=== PATIENT | male | born 1990 | race Caucasian/White ===

== ENCOUNTER 2018-04-06 16:37 | Inpatient (IN) | payer MEDICAID, OTHER ==
[~2018-04-06] VITALS: Ht 175.3 cm; Wt 59.9 kg
[2018-04-06] MEDS ORDERED: LORazepam 1 MG tablet PO ONE (18:45)
[2018-04-06 19:39] VITALS: BP 146/99
--- NOTE | 2018-04-06 20:23 | NUR ---
Pt has no hx of meds, spoke with Dr Fields and verbal orders were given for Ativan 1 mg po x 1 now, and Risperdal 0.5 mg po bid.
[2018-04-06] MEDS: risperiDONE 0.5mg tablet PO SCH (21:30)
[2018-04-07] MEDS ORDERED: OLANZapine 2.5MG tablet PO ONE ×2 (00:45→01:55)
--- NOTE | 2018-04-07 02:59 | NUR ---
ADMISSION NOTE Patient arrived on the unit on 04/06/2018 at 18:20 via wheelchair from [facility]. He was placed on a 5150 for Grave Disability. He is in sweatpants and a dirty T-shirt with messy hair. Per reports of [facility] that he presented to their ER with his girlfriend who was the historian because Dimitri was unable to answer any questions. She reported that she picked him [facility] (he had been living in [place] for a few months prior). She reported he had lost approximately 30 lbs over about 3 months while in [place]. She also reported he has been having auditory and visual hallucinations such as talking to people in the room that were not there. She said this had been going on since she picked him up at the airport but his conditioned worsened the nights of 03/31 and 04/01. He was unable to feed himself and would experience tremendous shaking while trying to ambulate. He had told her he did LSD and mushrooms while in [place] and she also thinks he took peyote while doing a sweat lodge. This evening on admission he presents to the unit looking bewildered, wide-eyed, and unsteady whenever he tries to stand. He is slightly stiff in his movements. His speech is garbled most of the time but answers some questions appropriately. He appears to comprehend what staff members are saying to him, if you ask him to lift his foot, he does. He is experiencing gross motor disturbance, reaching for objects and slightly missing them or knocking them over. When trying to ask any medical history, or family members we can try to contact, he answers, but his answers are not comprehendible. Patient was given 0.5 mg Risperdal and 1mg Ativan per physician's order. He was able to take these medications but staff had to assist him in drinking water. Laundry Technician could not complete the admission assessments due to his current state. He does not have the current ability to hold a pen to sign anything, and magnetic tape typewriter operator is unsure if he truly understands where he is or why despite explaining things to him.
--- NOTE | 2018-04-07 04:02 | NUR ---
Nursing Progress Note: Legal hold: 5150, expires 04/09/18 at 18:20 Client on voluntary/involuntary status for GD/DTS/DTO: GD Report received from nurse with use of SBAR: just admitted this shift Why are they here: Per reports of [facility] that he presented to their ER with his girlfriend who was the historian because Dimitri was unable to answer any questions. She reported that she picked him up from the [facility] weeks ago (he had been living in [place] for a few months prior). She reported he had lost approximately 30 lbs over about 3 months while in [place]. She also reported he has been having auditory and visual hallucinations such as talking to people in the room that were not there. She said this had been going on since she picked him up at the airport but his conditioned worsened the nights of 03/31 and 04/01. He was unable to feed himself and would experience tremendous shaking while trying to ambulate. He had told her he did LSD and mushrooms while in [place] and she also thinks he took peyote while doing a sweat lodge. Assessment What has happened this shift: Patient was cooperative with physical assessment, and smiled occasionally at staff but is not able to effectively make his needs or thoughts known.When he first came to the unit he was stiff and unable to stand on his own and was a 2 person assist. He was given 1mg Ativan and 0.5 mg Risperdal PO, which he took. Staff showered pt and washed his hair, and dressed him in clean hospital scrubs. He is able to alert staff that he needs to use the bathroom, life underwriter can somewhat make out words he says occasionally, "bathroom" is one of them. He needs to be frequently checked on because he does not use the call rios despite life underwriter showing him where it was and educating him on how to use it multiple times. He just sits up and tries to stand. He rests in bed on his back staring up at the ceiling and he reaches in the air for things that are not there, he is also talking to himself. His eyes are very big as if he may be frightened. Kettle Fry Cook Operator asks if he is okay and he says some incoherent things but the phrase "monster in the room" is recognizable. He then reaches out to writers hand and holds it, seemingly for comfort, and he smiles. Physician was called and Zyprexa 5mg with a 1 time may repeat 5mg dose was ordered. Kettle Fry Cook Operator administered the first 5mg and patient's state did not change so the second dose was given. Patient asked to go to the bathroom at 0330, and he was able to walk almost by himself to the bathroom with minimal assist from staff but he is still unsteady on his feet. He appears very tires, eyes are heavy, but never fully close. Each medication was explained to him before administering. Patient is having gross motor disturbance and misses objects he is trying to grab and cannot hold his water pitcher without spilling it. He was however able to hold a peanut butter and jelly sandwich and eat 75% of it. S/I, H/I: pt is unable to give a comprehendible response A/VH: + A +V hallucinations. Patient is reaching for objects that are not there and talking to people? that are not there Sleep: Patient rests in bed and almost closes his eyes, is very tired but does not appear to fully be asleep. ADL's: Total assist, is beginning to be able to walk with minimal assist but is still a fall risk. Group attendance: safety physician, no groups Were meds taken: yes Any med S/E: unable to assess at this time Mental Status Exam Appearance:clean, staff showered pt and washed his hair, in clean hospital scrubs Eye contact: direct Behavior: bizarre, rests in bed and stares at ceiling, reaches for things that are not there Speech: garbled, expressive aphasia Mood: appears frightened at times but remains polite ans smiles occasionally Affect: blank Thought process: disorganized Thought Content: actively hallucinating, says random things, most of which are not recognizable Cognition: severely impaired Insight: unable to assess Judgment: unable to assess Interventions PRN's used:" now" orders given 1 mg Ativan, 0.5 mg Risperdal, 10 mg Zyprexa. Therapeutic interventions: assistance with ADLS, showered patient, medication education, monitored medication effects, reassure patient of safety, Q15 minute safety checks. Restraints/seclusion/emergency medication: none Justification of Continued Inpatient Treatment: Patient is unable to complete ADLs on his own, he can not even hold a cup of water properly to drink it. He is actively hallucinating and reaching for things that are not there. He is unable to make coherent sentences. He is currently homeless and has no ability or means to provide food or mcfp for himself.
[2018-04-07] MEDS ORDERED: mag hydrox/Alum hydrox/simeth 30ml oral suspension PO PRN (04:28)
[2018-04-07] MEDS ORDERED: acetaminophen 325mg tablet PO PRN (04:28)
[2018-04-07] MEDS ORDERED: magnesium hydroxide 30ml (MOM) UD suspension PO PRN (04:29)
--- NOTE | 2018-04-07 05:22 | NUR ---
During inventory of pts belongings we found a bottle of neurontin as well as a prescription for Lyrica and generic discharge instructions [facility] in [place] dated 03/23/18 with stated dx of acute pain, and fibromyalgia.
[2018-04-07 07:44] VITALS: BP 136/84
[2018-04-07 07:44] LABS: ALBUMIN 3.8 G/DL (3.4-5.0); ANION GAP 12 (8-16); BLOOD UREA NITROGEN 19 MG/DL (7-18); BUN/CREATININE RATIO 27.1 (5.4-32.0); CALCIUM 9.6 MG/DL (8.5-10.1); CHLORIDE 97 MMOL/L (99-107); CHOL/HDL RATIO 2.6 (0.00-4.99); CHOLESTEROL 131 MG/DL (0-200); GLUCOSE 116 MG/DL (70-104); HDL CHOLESTEROL 50 MG/DL (35-60); LDL CHOLESTEROL 69 MG/DL (50-100); POTASSIUM 3.8 MMOL/L (3.5-5.1); SODIUM 137 MMOL/L (135-145); TOTAL CARBON DIOXIDE 28.5 MMOL/L (24-32); TRIGLYCERIDES 35 MG/DL (20-135); eGFR > 90 ML/MIN
[2018-04-07 07:46] LABS: HEMOGLOBIN A1C 5.6 % (4.5-6.2)
[2018-04-07] MEDS: risperiDONE 0.5mg tablet PO SCH (08:31)
[2018-04-07] MEDS: acetaminophen 325mg tablet PO PRN ×2 (08:31→16:47)
[2018-04-07] MEDS ORDERED: tuberculin, purif. prot. deriv. 5 units/0.1ml ID ONE (10:00)
--- NOTE | 2018-04-07 13:50 | NUR ---
Malnutrition consult: Pt admit w/ psychosis and catatonia. G/f states pt has lost over 20# per RN consult. Pt advanced to mechanical soft/chopped diet PO 25-50% meals but still remains unresponsive per RN. IRLANDA left voicetxil w/ social science research assistant to try and receive pt g/f contact information since she is currently not here in order to obtain further wt/PO hx. At this time pt has no edema/wounds, mild weakness, and initial low PO which does not qualify for malnutrition. Will monitor for additional criteria pending PO meals and additional hx from SO. RD consulted FIREMAN HELPER given no BSS and pt unresponsive would likely benefit. IF pt catatonia persists long-term may require PEG but not immediate concern at this time. Rec: 1. advance diet per FIREMAN HELPER to regular 2. monitor for ONS needs if low PO persists w/ catatonia 3. IF long-term catatonia may require PEG; no immediate concern 4. weekly wts Addendum: 04/07/18 at [address] Amended: Links added. Addendum: 04/07/18 at [address] Malnutrition consult: Pt admit w/ psychosis and catatonia. G/f states pt has lost over 20# per RN consult. Pt advanced to mechanical soft/chopped diet PO 25-50% meals but still remains unresponsive per RN. IRLANDA left [facility] w/ social science research assistant to try and receive pt g/f contact information since she is currently not here in order to obtain further wt/PO hx. At this time pt has no edema/wounds, severe weakness, and initial low PO which does not qualify for malnutrition. Will monitor for additional criteria pending PO meals and additional hx from SO. RD consulted FIREMAN HELPER given no BSS and pt unresponsive would likely benefit. IF pt catatonia persists long-term may require PEG but not immediate concern at this time. Rec: 1. advance diet per FIREMAN HELPER to regular 2. monitor for ONS needs if low PO persists w/ catatonia 3. IF long-term catatonia may require PEG; no immediate concern 4. weekly wts
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
--- NOTE | 2018-04-07 16:00 | NUR ---
Neurology Consult Update: Dr. Truong here earlier to see patient for routine medical exam. Dr. Truong went into patient's room for examination. Once out of room informed staff patient needed to be seen by a neurologist. Dr. Truong called Dr. Fernandes to discuss patient's symptoms. Dr. Fernandes provided orders to Dr. Truong for further evaluation. Dr. Truong called nursing station to state he had put in those orders.
[2018-04-07 16:12] LABS: BASOPHILS % (AUTO) 0.3 % (0-1); EOSINOPHILS # (AUTO) 0.6 X10'3 (0-0.9); EOSINOPHILS % (AUTO) 3.8 % (0-6); HEMATOCRIT 43.6 % (42.0-52.0); HEMOGLOBIN 14.6 g/dl (14.0-17.9); LYMPHOCYTES # (AUTO) 1.3 X10'3 (1.1-4.8); LYMPHOCYTES % (AUTO) 7.7 % (21-51); MEAN CORPUSCULAR HEMOGLOBIN 29.7 PG (27.0-31.0); MEAN CORPUSCULAR HGB CONC 33.5 g/dL (33.0-36.5); MEAN CORPUSCULAR VOLUME 88.6 FL (78-98); MEAN PLATELET VOLUME 8.1 FL (7.4-10.4); MONOCYTES # (AUTO) 1.4 X10'3 (0-0.9); MONOCYTES % (AUTO) 8.2 % (2-12); NEUTROPHILS # (AUTO) 13.4 X10'3 (1.8-7.7); PLATELET COUNT 412 X10'3 (140-440); RED BLOOD COUNT 4.93 X10'6 (4.70-6.10); RED CELL DISTRIBUTION WIDTH 12.5 % (11.5-14.5); WHITE BLOOD COUNT 16.8 X10'3 (4.5-11.0)
[2018-04-07 16:28] LABS: ALANINE AMINOTRANSFERASE 20 U/L (12-78); ALBUMIN 3.7 G/DL (3.4-5.0); ALBUMIN/GLOBULIN RATIO 1.1 (1.1-1.5); ALKALINE PHOSPHATASE 81 IU/L (46-116); ANION GAP 10 (8-16); ASPARTATE AMINO TRANSFERASE 7 U/L (10-37); BILIRUBIN,TOTAL 0.7 MG/DL (0.1-1.0); BLOOD UREA NITROGEN 22 MG/DL (7-18); BUN/CREATININE RATIO 27.5 (5.4-32.0); CALCIUM 9.3 MG/DL (8.5-10.1); CHLORIDE 94 MMOL/L (99-107); CREATINE KINASE 15 U/L (39-308); GLUCOSE 133 MG/DL (70-104); PHOSPHORUS 4.1 MG/DL (2.3-4.5); POTASSIUM 3.8 MMOL/L (3.5-5.1); SODIUM 131 MMOL/L (135-145); TOTAL CARBON DIOXIDE 27.2 MMOL/L (24-32); TOTAL PROTEIN 7.2 G/DL (6.4-8.2); eGFR > 90 ML/MIN
[2018-04-07] MEDS ORDERED: Potassium Cl inj 20 MEQ in normal saline 1000ml 990 ML IV SCH (16:40)
[2018-04-07 16:48] LABS: HIV ANTIBODY 1&2 RAPID NON-REACTIVE (Neg)
[2018-04-07 16:55] LABS: PLATELET ESTIMATE NORMAL; TOTAL CELLS COUNTED 100
[2018-04-07 17:09] LABS: INR 1.1 INR; PARTIAL THROMBOPLASTIN TIME 29 SECONDS (22-32)
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
--- NOTE | 2018-04-07 17:12 | NUR ---
Patient Status Update Call received from Dr. Jean Carlos Truong stating that after reviewing patient's labs he believes patient needs to be transferred to a neurology floor. Racehorse Trainer Florence FRYE called and notified. Dr. Ramos spoke with Dr. Truong and gave order to discharge patient. Patient will be readmitted by Dr. Truong. Geno from Neuro Floor called and stated patient will be admitted to Bed 4007.
[2018-04-07] MEDS ORDERED: GABA-532 PO (23:00)
[2018-04-07] MEDS ORDERED: TRAM50TA2 PO (23:00)
[2018-04-09 05:24] LABS: HBSAG SCREEN Negative (Negative); HEP A AB, IGM Negative (Negative); HEP B CORE AB, IGM Negative (Negative); HEPATITIS C ANTIBODY <0.1 s/co ratio (0.0-0.9); RPR Non Reactive (Non Reactive)
[2018-04-09 14:04] LABS: A/G RATIO 1.3 (0.7-1.7); ALBUMIN 3.9 g/dL (2.9-4.4); BETA GLOBULIN 1.1 g/dL (0.7-1.3); GAMMA GLOBULIN 0.8 g/dL (0.4-1.8); M-SPIKE Not Observed g/dL (Not Observed); PROTEIN, TOTAL, SERUM 6.9 g/dL (6.0-8.5)
== END 2018-04-07 18:05 | disposition short-term general hospital (02) | DRG 750 ==
LOC: EDBD → ADULT MH 17:57 → CMPBEDREQ 22:56
PROVIDERS: ADMIT Psychiatry & Neurology Psychiatry; ATTEND Psychiatry & Neurology Psychiatry
DX: F20.2 Catatonic schizophrenia (principal); E86.0 Dehydration; F12.90 Cannabis use, unspecified, uncomplicated; Z63.8 Other specified problems related to primary support group
CPT/HCPCS: 36415; 80048; 80053; 80061; 80074; 82550; 83036; 83605; 84100; 84145; 84155; 84165; 84439; 84443; 85025; 85610; 85651; 85730; 86592; 86703; 87070; J3480; J7030

== ENCOUNTER 2018-04-07 18:09 | Inpatient (IN) | payer MEDICAID, OTHER ==
[~2018-04-07] VITALS: Ht 177.8 cm; Wt 60.0 kg
[2018-04-07] MEDS ORDERED: potassium Cl 40MEQ/NS 500ml 500 ML IV PRN ×2 (18:10)
[2018-04-07] MEDS ORDERED: mag hydrox/Alum hydrox/simeth 30ml oral suspension PO PRN (18:10)
[2018-04-07] MEDS ORDERED: acetaminophen 325mg tablet PO PRN (18:10)
[2018-04-07] MEDS ORDERED: magnesium 2GM in 50ml NS 50 ML IV PRN (18:10)
[2018-04-07] MEDS ORDERED: potassium Cl 20 mEq SR tablet PO PRN ×2 (18:10)
[2018-04-07] MEDS ORDERED: ondansetron/PF 4mg/2ml inj IV PRN (18:10)
[2018-04-07] MEDS ORDERED: magnesium 4gm in 100ml NS 100 ML IV PRN (18:10)
[2018-04-07] MEDS ORDERED: magnesium Cl slow-release 64mg tablet PO PRN (18:10)
--- NOTE | 2018-04-07 19:00 | NUR ---
PT TRANSFERRED FROM MENTAL HEALTH. PT HAS BEEN ORIENTED TO THE ROOM. TRANSFFERED HIMSELF TO BED. SKIN CHECK PERFORMED. WILL CONTINUE TO MONITOR
[2018-04-07] MEDS: normal saline 1000ml 1,000 ML IV SCH (21:50)
[2018-04-07 22:00] VITALS: BP 141/96
--- NOTE | 2018-04-07 22:00 | NUR ---
PT UNABLE TO URINATE. BLADDER SCAN SHOWED [id number]. PLACED DELANEY CATHETER AND SENT UA TO LAB.
[2018-04-07 22:02] LABS: CLARITY,URINE CLEAR (Clear); COLOR,URINE YELLOW (Yellow); GLUCOSE, URINE NEGATIVE (Neg); KETONES,URINE NEGATIVE (Neg); LEUKOCYTE ESTERASE ,URINE NEGATIVE (Neg); NITRITES, URINE NEGATIVE (Neg); OCCULT BLOOD,URINE NEGATIVE (Neg); PH,URINE 5.5 (4.8-8.0); PROTEIN,URINE NEGATIVE (Neg); UROBILINOGEN,URINE 0.2 E.U/dL (0.2-1.0)
[2018-04-07 22:04] LABS: UA COLLECTION TYPE FOLEY CATH
[2018-04-07] MEDS ORDERED: TRAM50TA2 PO (23:00)
[2018-04-07] MEDS ORDERED: GABA-532 PO (23:00)
--- NOTE | 2018-04-07 23:00 | NUR ---
PT IS HAVING SHOOTING PAIN 8/10 ALL OVER BODY ESPECIALLY ARMS AND LEGS. IT GETS WORSE WHEN TRYING TO MOVE. I CONTACTED DR SHOOK REGARDING PAIN MEDS THAT HE IS TAKING AT HOME. DR SHOOK OK TO CONTINUE HOME MEDS OF GABAPENTIN AND TRAMADOL.
[2018-04-07] MEDS: gabapentin 300mg capsule PO SCH (23:45)
[2018-04-07] MEDS: traMADol 50MG tablet PO PRN (23:46)
[2018-04-08 01:47] LABS: URINE AMPHETAMINE SCREEN NEGATIVE (Neg); URINE BARBITUATE SCREEN NEGATIVE (Neg); URINE BENZODIAZEPINES SCREEN NEGATIVE (Neg); URINE CANNABINOID SCREEN POSITIVE (Neg); URINE COCAINE SCREEN NEGATIVE (Neg); URINE METHADONE SCREEN NEGATIVE (Neg); URINE OPIATE SCREEN NEGATIVE (Neg); URINE PHENCYCLIDINE SCREEN NEGATIVE (Neg)
[2018-04-08 02:00] VITALS: BP 129/86
[2018-04-08] MEDS: normal saline 1000ml 1,000 ML IV SCH ×3 (05:47→23:00)
[2018-04-08 06:00] VITALS: BP 140/85
--- NOTE | 2018-04-08 06:15 | NUR ---
Patient in room ORTHO 4007. I have received report from Do FRYE and had the opportunity to ask questions and assume patient care.
--- NOTE | 2018-04-08 06:20 | NUR ---
Patient in room ORTHO 4007. I have received report from Do FRYE and had the opportunity to ask questions and assume patient care.
--- NOTE | 2018-04-08 06:31 | NUR ---
Problems reprioritized. Patient report given, questions answered & plan of care reviewed with UDAY REDDY.
[2018-04-08] MEDS: K and/or MAG REPLACEMENT MC SCH (08:00)
[2018-04-08] MEDS: gabapentin 300mg capsule PO SCH ×2 (08:07→16:59)
[2018-04-08 09:46] LABS: BASOPHILS # (AUTO) 0.1 X10'3 (0-0.2); BASOPHILS % (AUTO) 0.7 % (0-1); EOSINOPHILS # (AUTO) 1.3 X10'3 (0-0.9); EOSINOPHILS % (AUTO) 8.3 % (0-6); HEMATOCRIT 40.2 % (42.0-52.0); HEMOGLOBIN 13.4 g/dl (14.0-17.9); LYMPHOCYTES # (AUTO) 1.4 X10'3 (1.1-4.8); LYMPHOCYTES % (AUTO) 9.2 % (21-51); MEAN CORPUSCULAR HEMOGLOBIN 29.7 PG (27.0-31.0); MEAN CORPUSCULAR HGB CONC 33.4 g/dL (33.0-36.5); MEAN PLATELET VOLUME 8.3 FL (7.4-10.4); MONOCYTES # (AUTO) 1.3 X10'3 (0-0.9); MONOCYTES % (AUTO) 8.5 % (2-12); NEUTROPHILS # (AUTO) 11.4 X10'3 (1.8-7.7); NEUTROPHILS % (AUTO) 73.3 % (42-75); PLATELET COUNT 366 X10'3 (140-440); RED BLOOD COUNT 4.52 X10'6 (4.70-6.10); RED CELL DISTRIBUTION WIDTH 12.8 % (11.5-14.5); WHITE BLOOD COUNT 15.5 X10'3 (4.5-11.0)
[2018-04-08 10:14] LABS: ALANINE AMINOTRANSFERASE 19 U/L (12-78); ALBUMIN 3.3 G/DL (3.4-5.0); ALKALINE PHOSPHATASE 71 IU/L (46-116); ANION GAP 9 (8-16); ASPARTATE AMINO TRANSFERASE 2 U/L (10-37); BILIRUBIN,TOTAL 0.7 MG/DL (0.1-1.0); BLOOD UREA NITROGEN 18 MG/DL (7-18); BUN/CREATININE RATIO 23.7 (5.4-32.0); CALCIUM 9.1 MG/DL (8.5-10.1); CHLORIDE 99 MMOL/L (99-107); CREATININE 0.76 MG/DL (0.60-1.10); GLUCOSE 98 MG/DL (70-104); MAGNESIUM 1.9 MG/DL (1.5-2.4); PHOSPHORUS 3.3 MG/DL (2.3-4.5); POTASSIUM 3.6 MMOL/L (3.5-5.1); SODIUM 134 MMOL/L (135-145); TOTAL CARBON DIOXIDE 26.2 MMOL/L (24-32); TOTAL PROTEIN 6.5 G/DL (6.4-8.2); eGFR > 90 ML/MIN
[2018-04-08 11:22] LABS: PLATELET ESTIMATE NORMAL; TOTAL CELLS COUNTED 100
--- NOTE | 2018-04-08 12:50 | NUR ---
Pt returned to floor from MRI, LP
[2018-04-08] MEDS: traMADol 50MG tablet PO PRN ×2 (12:58→21:08)
[2018-04-08 13:51] LABS: GLUCOSE,CSF 30 MG/DL (40-75); TOTAL PROTEIN,CSF 108 MG/DL (15-45)
[2018-04-08 13:55] LABS: APPEARANCE,CSF HAZY; CSF SUPERNATANT COLOR COLORLESS; CSF VOLUME 16 ML; TUBE# COUNTED 3
[2018-04-08 13:57] LABS: CSF RBC 0 /CU MM (0); CSF WBC CT 795 /CU MM (0-5)
[2018-04-08 14:04] LABS: EOSINOPHILS,CSF 27 %; MONOCYTES,CSF 10 % (15-45); NEUTRO,CSF 6 % (0-6)
--- NOTE | 2018-04-08 14:05 | NUR ---
Received critical during lunch break, advised charge nurse, stroke RN advised MD of results
--- NOTE | 2018-04-08 14:25 | NUR ---
Followed up with MD todd critical labs
[2018-04-08 14:36] LABS: LYMPHOCYTES,CSF 57 % (40-80)
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
[2018-04-08] MEDS: magnesium hydroxide 30ml (MOM) UD suspension PO PRN (16:59)
[2018-04-08 18:00] VITALS: BP 147/94
--- NOTE | 2018-04-08 18:06 | NUR ---
Problems reprioritized. Patient report given, questions answered & plan of care reviewed with Charlene FRYE.
--- NOTE | 2018-04-08 18:52 | NUR ---
Patient in room ORTHO 4012. I have received report from UDAY Franklin and had the opportunity to ask questions and assume patient care.
[2018-04-08 19:52] LABS: CREATINE KINASE 16 U/L (39-308)
[2018-04-08] MEDS: ALBENDAZOLE PO SCH (20:00)
[2018-04-08] MEDS: penicillin G potassium inj 4,000,000 UNIT in normal saline 100ml IV soln 100 ML IV SCH (21:08)
[2018-04-08] MEDS: fluconazole 100mg tablet PO SCH (21:09)
[2018-04-08 22:00] VITALS: BP 140/96
[2018-04-09] MEDS: gabapentin 300mg capsule PO SCH ×4 (00:36→23:32)
[2018-04-09] MEDS: penicillin G potassium inj 4,000,000 UNIT in normal saline 100ml IV soln 100 ML IV SCH ×7 (00:37→23:31)
[2018-04-09 02:00] VITALS: BP 135/97
[2018-04-09] MEDS: traMADol 50MG tablet PO PRN ×3 (03:04→23:32)
[2018-04-09 06:00] VITALS: BP 145/99
--- NOTE | 2018-04-09 06:15 | NUR ---
Problems reprioritized. Patient report given, questions answered & plan of care reviewed with UDAY Franklin.
--- NOTE | 2018-04-09 06:20 | NUR ---
Patient in room ORTHO 4012. I have received report from Charlene FRYE and had the opportunity to ask questions and assume patient care.
[2018-04-09] MEDS: K and/or MAG REPLACEMENT MC SCH (08:00)
[2018-04-09] MEDS ORDERED: prednisoLONE 15mg/5ml oral solution 5ml cup PO SCH (08:00)
[2018-04-09] MEDS: ALBENDAZOLE PO SCH (08:10)
[2018-04-09] MEDS: methylPREDNISolone sod succ 125mg/2ml vial IV SCH (08:14)
[2018-04-09 09:06] LABS: BASOPHILS # (AUTO) 0.2 X10'3 (0-0.2); BASOPHILS % (AUTO) 1.4 % (0-1); EOSINOPHILS # (AUTO) 1.5 X10'3 (0-0.9); EOSINOPHILS % (AUTO) 10.8 % (0-6); HEMATOCRIT 40.4 % (42.0-52.0); HEMOGLOBIN 13.6 g/dl (14.0-17.9); MEAN CORPUSCULAR HGB CONC 33.7 g/dL (33.0-36.5); MEAN CORPUSCULAR VOLUME 89.1 FL (78-98); MEAN PLATELET VOLUME 8.3 FL (7.4-10.4); MONOCYTES # (AUTO) 1.4 X10'3 (0-0.9); MONOCYTES % (AUTO) 10.3 % (2-12); NEUTROPHILS # (AUTO) 8.5 X10'3 (1.8-7.7); NEUTROPHILS % (AUTO) 62.5 % (42-75); PLATELET COUNT 346 X10'3 (140-440); RED BLOOD COUNT 4.53 X10'6 (4.70-6.10); RED CELL DISTRIBUTION WIDTH 12.6 % (11.5-14.5); WHITE BLOOD COUNT 13.6 X10'3 (4.5-11.0)
[2018-04-09] MEDS ORDERED: gadopentetate dimeglumine 5 mmol/10ml vial IV ONE (09:06)
[2018-04-09 09:29] LABS: ALANINE AMINOTRANSFERASE 18 U/L (12-78); ALBUMIN 3.3 G/DL (3.4-5.0); ALKALINE PHOSPHATASE 67 IU/L (46-116); ANION GAP 8 (8-16); ASPARTATE AMINO TRANSFERASE 8 U/L (10-37); BILIRUBIN,TOTAL 0.6 MG/DL (0.1-1.0); BLOOD UREA NITROGEN 13 MG/DL (7-18); BUN/CREATININE RATIO 15.9 (5.4-32.0); CALCIUM 8.9 MG/DL (8.5-10.1); CHLORIDE 99 MMOL/L (99-107); CREATININE 0.82 MG/DL (0.60-1.10); GLUCOSE 99 MG/DL (70-104); PHOSPHORUS 3.3 MG/DL (2.3-4.5); POTASSIUM 3.8 MMOL/L (3.5-5.1); SODIUM 136 MMOL/L (135-145); TOTAL CARBON DIOXIDE 29.1 MMOL/L (24-32); TOTAL PROTEIN 6.6 G/DL (6.4-8.2); eGFR > 90 ML/MIN
[2018-04-09] MEDS: fluconazole 100mg tablet PO SCH (10:07)
[2018-04-09] MEDS: normal saline 1000ml 1,000 ML IV SCH ×2 (10:33→23:31)
[2018-04-09 16:15] LABS: HIV ANTIBODY 1&2 RAPID NON-REACTIVE (Neg)
--- NOTE | 2018-04-09 16:16 | NUR ---
PAGER ID: [phone] MESSAGE: Noemi wilhelm [employer], # [phone], Dr. Shane Rouse from [facility] phoned and would like to speak with you. re Mr. Herman in [id number]
[2018-04-09] MEDS: CefTRIAXone 2gm/D5W 50ml 50 ML IV SCH (17:28)
[2018-04-09 18:00] VITALS: BP 150/100
--- NOTE | 2018-04-09 18:19 | NUR ---
Problems reprioritized. Patient report given, questions answered & plan of care reviewed with Danilo FRYE.
--- NOTE | 2018-04-09 18:20 | NUR ---
Patient in room ORTHO 4012. I have received report from MAUREEN FRYE and had the opportunity to ask questions and assume patient care.
[2018-04-09] MEDS: vancomycin/NS 1 GM ADD-VANTAGE 250 ML IV SCH (19:08)
[2018-04-09] MEDS: pregabalin 75mg capsule PO SCH (20:22)
[2018-04-09] MEDS: lactobacillus rhamnosus 10,000 MMU CELLS/CAPSULE PO SCH (20:22)
[2018-04-09] MEDS: magnesium hydroxide 30ml (MOM) UD suspension PO PRN (21:33)
--- NOTE | 2018-04-09 21:48 | NUR ---
PATIENT ORDERED [employer]UT AND SPENT ALL OF HIS $25.00 ON [employer].
[2018-04-09 22:00] VITALS: BP 145/105
[2018-04-10] MEDS: vancomycin/NS 1 GM ADD-VANTAGE 250 ML IV SCH ×2 (01:14→09:55)
[2018-04-10] MEDS: penicillin G potassium inj 4,000,000 UNIT in normal saline 100ml IV soln 100 ML IV SCH ×6 (04:15→23:58)
[2018-04-10 06:00] VITALS: BP 142/89
[2018-04-10] MEDS: normal saline 1000ml 1,000 ML IV SCH ×2 (06:09→17:44)
--- NOTE | 2018-04-10 06:24 | NUR ---
Problems reprioritized. Patient report given, questions answered & plan of care reviewed with STEVE FRYE.
--- NOTE | 2018-04-10 06:25 | NUR ---
Patient in room ORTHO 4012. I have received report from Danilo FRYE and had the opportunity to ask questions and assume patient care.
[2018-04-10 07:01] LABS: ALANINE AMINOTRANSFERASE 16 U/L (12-78); ALBUMIN 3.1 G/DL (3.4-5.0); ALBUMIN/GLOBULIN RATIO 0.9 (1.1-1.5); ALKALINE PHOSPHATASE 67 IU/L (46-116); ANION GAP 4 (8-16); ASPARTATE AMINO TRANSFERASE 4 U/L (10-37); BASOPHILS % (AUTO) 0.3 % (0-1); BILIRUBIN,TOTAL 0.3 MG/DL (0.1-1.0); BLOOD UREA NITROGEN 13 MG/DL (7-18); CALCIUM 9.1 MG/DL (8.5-10.1); CHLORIDE 104 MMOL/L (99-107); CREATININE 0.65 MG/DL (0.60-1.10); EOSINOPHILS # (AUTO) 0.3 X10'3 (0-0.9); GLUCOSE 101 MG/DL (70-104); HEMATOCRIT 39.8 % (42.0-52.0); HEMOGLOBIN 13.3 g/dl (14.0-17.9); LYMPHOCYTES % (AUTO) 16.1 % (21-51); MEAN CORPUSCULAR HEMOGLOBIN 29.8 PG (27.0-31.0); MEAN CORPUSCULAR HGB CONC 33.5 g/dL (33.0-36.5); MEAN PLATELET VOLUME 7.7 FL (7.4-10.4); MONOCYTES # (AUTO) 1.5 X10'3 (0-0.9); MONOCYTES % (AUTO) 11.8 % (2-12); NEUTROPHILS # (AUTO) 8.6 X10'3 (1.8-7.7); NEUTROPHILS % (AUTO) 69.8 % (42-75); PLATELET COUNT 366 X10'3 (140-440); POTASSIUM 4.2 MMOL/L (3.5-5.1); RED BLOOD COUNT 4.47 X10'6 (4.70-6.10); RED CELL DISTRIBUTION WIDTH 12.4 % (11.5-14.5); SODIUM 136 MMOL/L (135-145); TOTAL CARBON DIOXIDE 28.2 MMOL/L (24-32); TOTAL PROTEIN 6.5 G/DL (6.4-8.2); WHITE BLOOD COUNT 12.3 X10'3 (4.5-11.0); eGFR > 90 ML/MIN
[2018-04-10] MEDS: methylPREDNISolone sod succ 125mg/2ml vial IV SCH (07:21)
[2018-04-10] MEDS: pregabalin 75mg capsule PO SCH ×2 (07:21→20:08)
[2018-04-10] MEDS: gabapentin 300mg capsule PO SCH ×3 (07:21→23:58)
[2018-04-10] MEDS: fluconazole 100mg tablet PO SCH (07:21)
[2018-04-10] MEDS: lactobacillus rhamnosus 10,000 MMU CELLS/CAPSULE PO SCH ×2 (07:21→20:08)
[2018-04-10] MEDS: K and/or MAG REPLACEMENT MC SCH (08:00)
[2018-04-10] MEDS: CefTRIAXone 2gm/D5W 50ml 50 ML IV SCH (09:08)
[2018-04-10 10:00] VITALS: BP 148/103
--- NOTE | 2018-04-10 10:07 | NUR ---
Guo catheter removed, will monitor patient for urine output
[2018-04-10] MEDS: traMADol 50MG tablet PO PRN ×2 (14:54→20:09)
[2018-04-10] MEDS ORDERED: VANCOMYCIN LEVEL IV NR (16:30)
[2018-04-10 18:00] VITALS: BP 145/105
--- NOTE | 2018-04-10 18:15 | NUR ---
Problems reprioritized. Patient report given, questions answered & plan of care reviewed with Clara FRYE.
--- NOTE | 2018-04-10 18:51 | NUR ---
Report rec'd from mireille Edouard.
[2018-04-10 22:00] VITALS: BP 158/114
[2018-04-11] MEDS: normal saline 1000ml 1,000 ML IV SCH ×3 (02:09→20:56)
[2018-04-11] MEDS: penicillin G potassium inj 4,000,000 UNIT in normal saline 100ml IV soln 100 ML IV SCH ×5 (05:21→20:55)
--- NOTE | 2018-04-11 05:42 | NUR ---
Pt is seriously confused/hallucinating about other "friends" in the room and that "need some blankets to spend the night." He continues to get up to the BR w/o using his call light. He chewed his IV tubing in half so he could get up. bed alarm is engaged and working and he has been educated about it, although he will need reinforcement of this idea. pt may be getting defensive r/t all the safety restrictions. will continue to monitor.
[2018-04-11 06:00] VITALS: BP 146/102
--- NOTE | 2018-04-11 06:50 | NUR ---
REPORT GIVEN TO UDAY VILLA. AND UDAY DAMON.
[2018-04-11 07:24] LABS: BASOPHILS % (AUTO) 0.2 % (0-1); EOSINOPHILS # (AUTO) 0.3 X10'3 (0-0.9); EOSINOPHILS % (AUTO) 2.1 % (0-6); LYMPHOCYTES # (AUTO) 2.3 X10'3 (1.1-4.8); LYMPHOCYTES % (AUTO) 17.8 % (21-51); MEAN CORPUSCULAR HEMOGLOBIN 29.6 PG (27.0-31.0); MEAN CORPUSCULAR HGB CONC 33.3 g/dL (33.0-36.5); MEAN CORPUSCULAR VOLUME 89.1 FL (78-98); MONOCYTES # (AUTO) 1.5 X10'3 (0-0.9); MONOCYTES % (AUTO) 11.6 % (2-12); NEUTROPHILS # (AUTO) 8.9 X10'3 (1.8-7.7); NEUTROPHILS % (AUTO) 68.3 % (42-75); PLATELET COUNT 394 X10'3 (140-440); RED BLOOD COUNT 4.38 X10'6 (4.70-6.10); RED CELL DISTRIBUTION WIDTH 12.6 % (11.5-14.5); WHITE BLOOD COUNT 13.1 X10'3 (4.5-11.0)
[2018-04-11 07:35] LABS: ALANINE AMINOTRANSFERASE 15 U/L (12-78); ALBUMIN 3.2 G/DL (3.4-5.0); ALKALINE PHOSPHATASE 65 IU/L (46-116); ANION GAP 3 (8-16); ASPARTATE AMINO TRANSFERASE 5 U/L (10-37); BILIRUBIN,TOTAL 0.2 MG/DL (0.1-1.0); BLOOD UREA NITROGEN 16 MG/DL (7-18); BUN/CREATININE RATIO 23.9 (5.4-32.0); CHLORIDE 103 MMOL/L (99-107); CREATININE 0.67 MG/DL (0.60-1.10); GLUCOSE 96 MG/DL (70-104); MAGNESIUM 1.8 MG/DL (1.5-2.4); PHOSPHORUS 3.2 MG/DL (2.3-4.5); POTASSIUM 3.8 MMOL/L (3.5-5.1); SODIUM 136 MMOL/L (135-145); TOTAL CARBON DIOXIDE 29.6 MMOL/L (24-32); TOTAL PROTEIN 6.4 G/DL (6.4-8.2); eGFR > 90 ML/MIN
[2018-04-11] MEDS: K and/or MAG REPLACEMENT MC SCH (08:00)
[2018-04-11] MEDS: pantoprazole 40mg Tablet.DR PO SCH (09:09)
[2018-04-11] MEDS: lactobacillus rhamnosus 10,000 MMU CELLS/CAPSULE PO SCH ×2 (09:09→20:55)
[2018-04-11] MEDS: gabapentin 300mg capsule PO SCH ×2 (09:10→16:29)
[2018-04-11] MEDS: methylPREDNISolone sod succ 125mg/2ml vial IV SCH (09:10)
[2018-04-11] MEDS: pregabalin 75mg capsule PO SCH ×2 (09:10→20:55)
[2018-04-11] MEDS: fluconazole 100mg tablet PO SCH (09:11)
[2018-04-11 10:00] VITALS: BP 166/116
[2018-04-11] MEDS: traMADol 50MG tablet PO PRN ×2 (10:39→21:00)
[2018-04-11 18:00] VITALS: BP 147/104
--- NOTE | 2018-04-11 18:33 | NUR ---
RECEIVED REPORT FROM ALLEN FRYE AND ASSUMED PATIENT CARE
[2018-04-11 22:00] VITALS: BP 136/96
[2018-04-12] MEDS: gabapentin 300mg capsule PO SCH ×4 (00:10→23:43)
[2018-04-12] MEDS: penicillin G potassium inj 4,000,000 UNIT in normal saline 100ml IV soln 100 ML IV SCH ×7 (00:10→23:43)
[2018-04-12] MEDS: traMADol 50MG tablet PO PRN ×3 (04:05→23:54)
[2018-04-12 06:00] VITALS: BP 144/115
--- NOTE | 2018-04-12 06:13 | NUR ---
REPORT GIVEN TO ALLEN FRYE
[2018-04-12 07:02] LABS: BASOPHILS % (AUTO) 0.1 % (0-1); EOSINOPHILS # (AUTO) 0.1 X10'3 (0-0.9); EOSINOPHILS % (AUTO) 0.4 % (0-6); HEMATOCRIT 40.2 % (42.0-52.0); HEMOGLOBIN 13.1 g/dl (14.0-17.9); LYMPHOCYTES # (AUTO) 2.1 X10'3 (1.1-4.8); LYMPHOCYTES % (AUTO) 17.4 % (21-51); MEAN CORPUSCULAR HEMOGLOBIN 29.4 PG (27.0-31.0); MEAN CORPUSCULAR HGB CONC 32.5 g/dL (33.0-36.5); MEAN CORPUSCULAR VOLUME 90.2 FL (78-98); MEAN PLATELET VOLUME 7.8 FL (7.4-10.4); MONOCYTES % (AUTO) 8.4 % (2-12); NEUTROPHILS # (AUTO) 8.8 X10'3 (1.8-7.7); NEUTROPHILS % (AUTO) 73.7 % (42-75); PLATELET COUNT 344 X10'3 (140-440); RED BLOOD COUNT 4.45 X10'6 (4.70-6.10); RED CELL DISTRIBUTION WIDTH 12.3 % (11.5-14.5); WHITE BLOOD COUNT 11.9 X10'3 (4.5-11.0)
[2018-04-12 07:12] LABS: ALANINE AMINOTRANSFERASE 13 U/L (12-78); ALBUMIN/GLOBULIN RATIO 0.9 (1.1-1.5); ALKALINE PHOSPHATASE 58 IU/L (46-116); ANION GAP 5 (8-16); ASPARTATE AMINO TRANSFERASE 9 U/L (10-37); BILIRUBIN,TOTAL 0.3 MG/DL (0.1-1.0); BLOOD UREA NITROGEN 13 MG/DL (7-18); BUN/CREATININE RATIO 22.8 (5.4-32.0); CALCIUM 9.3 MG/DL (8.5-10.1); CHLORIDE 104 MMOL/L (99-107); CREATININE 0.57 MG/DL (0.60-1.10); GLUCOSE 104 MG/DL (70-104); PHOSPHORUS 3.5 MG/DL (2.3-4.5); POTASSIUM 3.9 MMOL/L (3.5-5.1); SODIUM 135 MMOL/L (135-145); TOTAL CARBON DIOXIDE 26.2 MMOL/L (24-32); TOTAL PROTEIN 6.2 G/DL (6.4-8.2); eGFR > 90 ML/MIN
[2018-04-12] MEDS: K and/or MAG REPLACEMENT MC SCH (08:00)
[2018-04-12] MEDS: normal saline 1000ml 1,000 ML IV SCH ×2 (08:09→23:43)
[2018-04-12] MEDS: lactobacillus rhamnosus 10,000 MMU CELLS/CAPSULE PO SCH ×2 (08:52→20:08)
[2018-04-12] MEDS: pregabalin 75mg capsule PO SCH ×2 (08:52→20:08)
[2018-04-12] MEDS: pantoprazole 40mg Tablet.DR PO SCH (08:53)
[2018-04-12] MEDS: methylPREDNISolone sod succ 125mg/2ml vial IV SCH (08:53)
[2018-04-12] MEDS: fluconazole 100mg tablet PO SCH (08:54)
[2018-04-12 10:00] VITALS: BP 141/101
--- NOTE | 2018-04-12 14:45 | NUR ---
reassessment: Pt DX meningitis w/ further bacterium labs pending per MD note. Pt PO 50-75% regular diet meeting needs. Per RN trichomoniasis has been r/o; pt was drinking contaminated water and wild pig in [place]. Pt requests hot chocolate TIDWM per RN; IRLANDA d/w dietary OK to send only lactose intolerance no milk protein allergy; remains no milk to drink. No BM yet this admit documented; on MoM PRN and ultram PRN. IRLANDA [email or web address] for routine bowel care given 5 days constipation. MD agrees to order. Will continue to monitor. Rec: 1. continue regular diet per MD 2. monitor for ONS needs 3. routine bowel care 4. weekly wts Addendum: 04/12/18 at [address] Amended: Links added.
[2018-04-12] MEDS ORDERED: magnesium hydroxide 30ml (MOM) UD suspension PO PRN (14:50)
[2018-04-12] MEDS ORDERED: LIDOcaine 1%/PF 5ML 10 MG/ML VIAL ONE (16:06)
[2018-04-12 17:48] LABS: APPEARANCE,CSF HAZY; CSF SUPERNATANT COLOR COLORLESS; CSF VOLUME 3.5 ML; TUBE# COUNTED 1
[2018-04-12 17:51] LABS: CSF RBC 1 /CU MM (0); CSF WBC CT 588 /CU MM (0-5); EOSINOPHILS,CSF 40 %; MONOCYTES,CSF 8 % (15-45); NEUTRO,CSF 4 % (0-6)
[2018-04-12 17:52] LABS: OTHER CELLS,CSF PLASMA CELLS
[2018-04-12 17:53] LABS: LYMPHOCYTES,CSF 43 % (40-80)
[2018-04-12 18:00] VITALS: BP 143/100
[2018-04-12] MEDS: docusate sod 100mg capsule PO SCH (20:08)
[2018-04-12 22:00] VITALS: BP 141/102
[2018-04-13] MEDS: penicillin G potassium inj 4,000,000 UNIT in normal saline 100ml IV soln 100 ML IV SCH ×5 (04:41→20:11)
[2018-04-13 06:00] VITALS: BP 130/87
--- NOTE | 2018-04-13 06:38 | NUR ---
Report given to Meryl FRYE and Hyacinth FRYE.
[2018-04-13] MEDS: traMADol 50MG tablet PO PRN ×3 (07:45→20:09)
[2018-04-13] MEDS: gabapentin 300mg capsule PO SCH ×2 (07:46→16:05)
[2018-04-13] MEDS: pregabalin 75mg capsule PO SCH ×2 (07:46→20:09)
[2018-04-13] MEDS: lactobacillus rhamnosus 10,000 MMU CELLS/CAPSULE PO SCH ×2 (07:46→20:09)
[2018-04-13] MEDS: pantoprazole 40mg Tablet.DR PO SCH (07:46)
[2018-04-13] MEDS: docusate sod 100mg capsule PO SCH ×2 (07:46→20:09)
[2018-04-13] MEDS: fluconazole 100mg tablet PO SCH (07:47)
[2018-04-13] MEDS: methylPREDNISolone sod succ 125mg/2ml vial IV SCH (07:47)
[2018-04-13] MEDS: K and/or MAG REPLACEMENT MC SCH (08:00)
[2018-04-13 10:00] VITALS: BP 134/100
[2018-04-13 11:37] VITALS: BP 150/89
[2018-04-13] MEDS: normal saline 1000ml 1,000 ML IV SCH (17:51)
[2018-04-13 18:00] VITALS: BP 133/92
--- NOTE | 2018-04-13 18:30 | NUR ---
Received report from Meryl FRYE and Hyacinth FRYE.
--- NOTE | 2018-04-13 20:14 | NUR ---
Patient refused miralax this evening as ordered. requesting it in am.
[2018-04-13 22:00] VITALS: BP 144/100
[2018-04-14] MEDS: gabapentin 300mg capsule PO SCH ×4 (00:02→23:49)
[2018-04-14] MEDS: penicillin G potassium inj 4,000,000 UNIT in normal saline 100ml IV soln 100 ML IV SCH ×7 (00:03→23:49)
[2018-04-14] MEDS: traMADol 50MG tablet PO PRN ×4 (02:13→20:09)
[2018-04-14 06:00] VITALS: BP 146/103
--- NOTE | 2018-04-14 06:15 | NUR ---
Patient in room ORTHO 4012. I have received report from KIMBERLY FRYE and had the opportunity to ask questions and assume patient care.
--- NOTE | 2018-04-14 06:25 | NUR ---
Report given to Mitch FRYE.
[2018-04-14] MEDS: K and/or MAG REPLACEMENT MC SCH (08:00)
[2018-04-14] MEDS: pantoprazole 40mg Tablet.DR PO SCH (08:06)
[2018-04-14] MEDS: methylPREDNISolone sod succ 125mg/2ml vial IV SCH (08:07)
[2018-04-14] MEDS: docusate sod 100mg capsule PO SCH ×2 (08:07→20:00)
[2018-04-14] MEDS: lactobacillus rhamnosus 10,000 MMU CELLS/CAPSULE PO SCH ×2 (08:07→20:09)
[2018-04-14] MEDS: pregabalin 75mg capsule PO SCH ×2 (08:08→20:09)
[2018-04-14] MEDS: fluconazole 100mg tablet PO SCH (08:13)
[2018-04-14] MEDS: polyethylene glycol 3350 17gm powd pack PO PRN (08:17)
[2018-04-14] MEDS: normal saline 1000ml 1,000 ML IV SCH ×2 (08:26→12:05)
[2018-04-14 10:00] VITALS: BP 130/92
[2018-04-14 12:07] LABS: BASOPHILS % (AUTO) 0.1 % (0-1); EOSINOPHILS % (AUTO) 0.2 % (0-6); HEMATOCRIT 45.3 % (42.0-52.0); HEMOGLOBIN 15.1 g/dl (14.0-17.9); LYMPHOCYTES # (AUTO) 0.6 X10'3 (1.1-4.8); LYMPHOCYTES % (AUTO) 4.6 % (21-51); MEAN CORPUSCULAR HEMOGLOBIN 29.8 PG (27.0-31.0); MEAN CORPUSCULAR HGB CONC 33.3 g/dL (33.0-36.5); MEAN CORPUSCULAR VOLUME 89.5 FL (78-98); MEAN PLATELET VOLUME 8.1 FL (7.4-10.4); MONOCYTES # (AUTO) 0.4 X10'3 (0-0.9); MONOCYTES % (AUTO) 2.9 % (2-12); NEUTROPHILS # (AUTO) 12.8 X10'3 (1.8-7.7); NEUTROPHILS % (AUTO) 92.2 % (42-75); PLATELET COUNT 404 X10'3 (140-440); RED BLOOD COUNT 5.06 X10'6 (4.70-6.10); RED CELL DISTRIBUTION WIDTH 12.8 % (11.5-14.5); WHITE BLOOD COUNT 13.8 X10'3 (4.5-11.0)
[2018-04-14 12:20] LABS: ALBUMIN 3.5 G/DL (3.4-5.0); ANION GAP 10 (8-16); BLOOD UREA NITROGEN 15 MG/DL (7-18); BUN/CREATININE RATIO 16.5 (5.4-32.0); CALCIUM 9.1 MG/DL (8.5-10.1); CHLORIDE 100 MMOL/L (99-107); CREATININE 0.91 MG/DL (0.60-1.10); GLUCOSE 147 MG/DL (70-104); POTASSIUM 4.5 MMOL/L (3.5-5.1); SODIUM 136 MMOL/L (135-145); TOTAL CARBON DIOXIDE 25.9 MMOL/L (24-32); eGFR > 90 ML/MIN
[2018-04-14] MEDS: acetaminophen 325mg tablet PO PRN ×2 (17:41→23:49)
[2018-04-14 18:00] VITALS: BP 137/95
--- NOTE | 2018-04-14 18:15 | NUR ---
Problems reprioritized. Patient report given, questions answered & plan of care reviewed with KIMBERLY FRYE.
[2018-04-14 22:00] VITALS: BP 143/96
[2018-04-15] MEDS: traMADol 50MG tablet PO PRN ×4 (02:01→20:11)
[2018-04-15] MEDS: penicillin G potassium inj 4,000,000 UNIT in normal saline 100ml IV soln 100 ML IV SCH ×4 (04:24→16:34)
[2018-04-15] MEDS: acetaminophen 325mg tablet PO PRN ×2 (05:49→22:42)
[2018-04-15 06:00] VITALS: BP 137/86
[2018-04-15 06:30] LABS: BASOPHILS % (AUTO) 0.2 % (0-1); EOSINOPHILS # (AUTO) 0.3 X10'3 (0-0.9); EOSINOPHILS % (AUTO) 2.1 % (0-6); HEMATOCRIT 40.5 % (42.0-52.0); HEMOGLOBIN 13.2 g/dl (14.0-17.9); LYMPHOCYTES # (AUTO) 2.5 X10'3 (1.1-4.8); LYMPHOCYTES % (AUTO) 18.1 % (21-51); MEAN CORPUSCULAR HEMOGLOBIN 29.2 PG (27.0-31.0); MEAN CORPUSCULAR HGB CONC 32.6 g/dL (33.0-36.5); MEAN CORPUSCULAR VOLUME 89.4 FL (78-98); MEAN PLATELET VOLUME 8.2 FL (7.4-10.4); MONOCYTES # (AUTO) 1.2 X10'3 (0-0.9); MONOCYTES % (AUTO) 8.8 % (2-12); NEUTROPHILS # (AUTO) 9.8 X10'3 (1.8-7.7); NEUTROPHILS % (AUTO) 70.8 % (42-75); PLATELET COUNT 315 X10'3 (140-440); RED BLOOD COUNT 4.53 X10'6 (4.70-6.10); RED CELL DISTRIBUTION WIDTH 12.6 % (11.5-14.5); WHITE BLOOD COUNT 13.8 X10'3 (4.5-11.0)
[2018-04-15 06:37] LABS: CHLORIDE 102 MMOL/L (99-107); GLUCOSE 90 MG/DL (70-104); POTASSIUM 4.1 MMOL/L (3.5-5.1); SODIUM 138 MMOL/L (135-145); TOTAL CARBON DIOXIDE 30.7 MMOL/L (24-32)
[2018-04-15 06:38] LABS: ANION GAP 5 (8-16); BLOOD UREA NITROGEN 17 MG/DL (7-18); BUN/CREATININE RATIO 23.3 (5.4-32.0); CALCIUM 8.8 MG/DL (8.5-10.1); CREATININE 0.73 MG/DL (0.60-1.10); eGFR > 90 ML/MIN
--- NOTE | 2018-04-15 06:39 | NUR ---
Problems reprioritized. Patient report given, questions answered & plan of care reviewed with UDAY Aguilar.
--- NOTE | 2018-04-15 06:49 | NUR ---
Patient in room ORTHO 4012. I have received report from Amy FRYE and had the opportunity to ask questions and assume patient care.
[2018-04-15] MEDS: K and/or MAG REPLACEMENT MC SCH (07:06)
[2018-04-15] MEDS: gabapentin 300mg capsule PO SCH (07:23)
[2018-04-15] MEDS: pantoprazole 40mg Tablet.DR PO SCH (07:23)
[2018-04-15] MEDS: pregabalin 75mg capsule PO SCH ×2 (07:23→20:12)
[2018-04-15] MEDS: docusate sod 100mg capsule PO SCH ×2 (07:24→20:00)
[2018-04-15] MEDS: lactobacillus rhamnosus 10,000 MMU CELLS/CAPSULE PO SCH ×2 (07:24→20:10)
[2018-04-15] MEDS: fluconazole 100mg tablet PO SCH (07:27)
[2018-04-15] MEDS: methylPREDNISolone sod succ 125mg/2ml vial IV SCH ×2 (07:30→20:10)
[2018-04-15 10:00] VITALS: BP 137/89
[2018-04-15] MEDS: normal saline 1000ml 1,000 ML IV SCH (11:06)
--- NOTE | 2018-04-15 14:19 | NUR ---
Student Medication Administration: For this medication-pass time frame, all medication were reviewed, dispensed, administered and documented per hospital policy by SN Robert.
[2018-04-15 18:00] VITALS: BP 122/93
--- NOTE | 2018-04-15 18:26 | NUR ---
Problems reprioritized. Patient report given, questions answered & plan of care reviewed with Amy Walker RN.
--- NOTE | 2018-04-15 18:30 | NUR ---
Patient in room ORTHO 4012. I have received report from UDAY Aguilar and had the opportunity to ask questions and assume patient care.
[2018-04-15 22:00] VITALS: BP 153/103
[2018-04-16] MEDS: traMADol 50MG tablet PO PRN ×3 (01:59→13:43)
--- NOTE | 2018-04-16 05:05 | NUR ---
went over assessment with SRN and agree with findings
[2018-04-16 06:10] VITALS: BP 156/105
--- NOTE | 2018-04-16 06:30 | NUR ---
I have received report from Amy Walker RN
--- NOTE | 2018-04-16 06:35 | NUR ---
Problems reprioritized. Patient report given, questions answered & plan of care reviewed with UDAY Varner.
[2018-04-16 06:42] LABS: BASOPHILS % (AUTO) 0.1 % (0-1); EOSINOPHILS % (AUTO) 0 % (0-6); HEMATOCRIT 40.8 % (42.0-52.0); HEMOGLOBIN 13.7 g/dl (14.0-17.9); LYMPHOCYTES # (AUTO) 0.6 X10'3 (1.1-4.8); LYMPHOCYTES % (AUTO) 6.2 % (21-51); MEAN CORPUSCULAR HEMOGLOBIN 29.9 PG (27.0-31.0); MEAN CORPUSCULAR HGB CONC 33.6 g/dL (33.0-36.5); MEAN CORPUSCULAR VOLUME 88.9 FL (78-98); MEAN PLATELET VOLUME 8.6 FL (7.4-10.4); MONOCYTES # (AUTO) 0.7 X10'3 (0-0.9); MONOCYTES % (AUTO) 6.4 % (2-12); NEUTROPHILS # (AUTO) 9.1 X10'3 (1.8-7.7); NEUTROPHILS % (AUTO) 87.3 % (42-75); PLATELET COUNT 326 X10'3 (140-440); RED BLOOD COUNT 4.58 X10'6 (4.70-6.10); RED CELL DISTRIBUTION WIDTH 12.4 % (11.5-14.5); WHITE BLOOD COUNT 10.4 X10'3 (4.5-11.0)
[2018-04-16 06:52] LABS: ALBUMIN 3.1 G/DL (3.4-5.0); ANION GAP 6 (8-16); BLOOD UREA NITROGEN 13 MG/DL (7-18); BUN/CREATININE RATIO 19.7 (5.4-32.0); CALCIUM 9.6 MG/DL (8.5-10.1); CHLORIDE 100 MMOL/L (99-107); CREATININE 0.66 MG/DL (0.60-1.10); GLUCOSE 121 MG/DL (70-104); POTASSIUM 4.1 MMOL/L (3.5-5.1); SODIUM 137 MMOL/L (135-145); TOTAL CARBON DIOXIDE 30.9 MMOL/L (24-32); eGFR > 90 ML/MIN
[2018-04-16] MEDS: K and/or MAG REPLACEMENT MC SCH (08:00)
[2018-04-16] MEDS: pregabalin 75mg capsule PO SCH ×2 (08:17→20:24)
[2018-04-16] MEDS: pantoprazole 40mg Tablet.DR PO SCH (08:17)
[2018-04-16] MEDS: fluconazole 100mg tablet PO SCH (08:17)
[2018-04-16] MEDS: lactobacillus rhamnosus 10,000 MMU CELLS/CAPSULE PO SCH ×2 (08:17→20:23)
[2018-04-16] MEDS: methylPREDNISolone sod succ 125mg/2ml vial IV SCH ×2 (08:18→20:25)
[2018-04-16] MEDS: docusate sod 100mg capsule PO SCH ×2 (08:18→20:00)
[2018-04-16 10:00] VITALS: BP 144/91
[2018-04-16 18:00] VITALS: BP 153/109
--- NOTE | 2018-04-16 18:27 | NUR ---
I gave patient report to Amy Walker RN
[2018-04-16] MEDS ORDERED: temazepam 15mg capsule PO PRN (19:35)
[2018-04-16] MEDS: Melatonin 3mg tablet PO SCH (20:23)
[2018-04-16 22:00] VITALS: BP 145/106
[2018-04-16] MEDS: acetaminophen 325mg tablet PO PRN (23:41)
--- NOTE | 2018-04-17 02:52 | NUR ---
reviewed and agree with SRN assessment.
[2018-04-17 06:14] VITALS: BP 147/103
--- NOTE | 2018-04-17 06:14 | NUR ---
Patient in room ORTHO 4012. I have received report from and had the opportunity to ask questions and assume patient care UADY Varner.
--- NOTE | 2018-04-17 06:15 | NUR ---
Patient in room ORTHO 4012. I have received report from Amy Walker and had the opportunity to ask questions and assume patient care.
[2018-04-17 06:55] LABS: BASOPHILS % (AUTO) 0 % (0-1); EOSINOPHILS % (AUTO) 0 % (0-6); HEMATOCRIT 41.3 % (42.0-52.0); HEMOGLOBIN 13.8 g/dl (14.0-17.9); LYMPHOCYTES # (AUTO) 0.7 X10'3 (1.1-4.8); LYMPHOCYTES % (AUTO) 6.1 % (21-51); MEAN CORPUSCULAR HEMOGLOBIN 29.8 PG (27.0-31.0); MEAN CORPUSCULAR HGB CONC 33.5 g/dL (33.0-36.5); MEAN CORPUSCULAR VOLUME 88.9 FL (78-98); MEAN PLATELET VOLUME 8.4 FL (7.4-10.4); MONOCYTES # (AUTO) 0.9 X10'3 (0-0.9); MONOCYTES % (AUTO) 8.1 % (2-12); NEUTROPHILS # (AUTO) 9.9 X10'3 (1.8-7.7); NEUTROPHILS % (AUTO) 85.8 % (42-75); PLATELET COUNT 312 X10'3 (140-440); RED BLOOD COUNT 4.64 X10'6 (4.70-6.10); RED CELL DISTRIBUTION WIDTH 12.5 % (11.5-14.5); WHITE BLOOD COUNT 11.5 X10'3 (4.5-11.0)
[2018-04-17 07:02] LABS: ANION GAP 6 (8-16); BLOOD UREA NITROGEN 17 MG/DL (7-18); CALCIUM 9.6 MG/DL (8.5-10.1); CHLORIDE 101 MMOL/L (99-107); CREATININE 0.85 MG/DL (0.60-1.10); GLUCOSE 116 MG/DL (70-104); POTASSIUM 4.1 MMOL/L (3.5-5.1); SODIUM 138 MMOL/L (135-145); TOTAL CARBON DIOXIDE 31.3 MMOL/L (24-32); eGFR > 90 ML/MIN
[2018-04-17] MEDS: pregabalin 75mg capsule PO SCH ×3 (07:50→20:55)
[2018-04-17] MEDS: K and/or MAG REPLACEMENT MC SCH (08:00)
[2018-04-17] MEDS: methylPREDNISolone sod succ 125mg/2ml vial IV SCH ×2 (08:22→20:55)
[2018-04-17] MEDS: lactobacillus rhamnosus 10,000 MMU CELLS/CAPSULE PO SCH ×2 (08:22→20:55)
[2018-04-17] MEDS: acetaminophen 325mg tablet PO PRN (08:22)
[2018-04-17] MEDS: pantoprazole 40mg Tablet.DR PO SCH (08:22)
[2018-04-17] MEDS: fluconazole 100mg tablet PO SCH (08:23)
[2018-04-17 10:00] VITALS: BP 159/110
[2018-04-17] MEDS: traMADol 50MG tablet PO PRN ×2 (11:58→17:59)
--- NOTE | 2018-04-17 11:58 | NUR ---
reassessment: Pt PO improved to 75-100% regular diet meeting needs. LBM 3/7. Eosinophilic meningitis per MD note. No nutrition concerns at this time. Rec: 1. continue regular diet per MD 2. routine bowel care 3. weekly wts Addendum: 04/17/18 at [address] Amended: Links added. Addendum: 04/17/18 at [address] reassessment: Pt PO improved to 75-100% regular diet meeting needs. LBM 3/7. Eosinophilic meningitis per note. No nutrition concerns at this time. Pt requests extra portions; double proteins w/ meals to be sent; IRLANDA d/w dietary.
[2018-04-17] MEDS: docusate sod 100mg capsule PO SCH ×2 (12:13→20:55)
[2018-04-17 18:00] VITALS: BP 153/109
--- NOTE | 2018-04-17 18:30 | NUR ---
I gave patient report to Mickie Dhillon RN
--- NOTE | 2018-04-17 18:37 | NUR ---
Dr. Evangelista notified of pressure ulcer. I am going to file incident report, please see hourly rounding at about 1700 for more notes.
--- NOTE | 2018-04-17 19:03 | NUR ---
Patient in room ORTHO 4012. I have received report from Gardenia FRYE and had the opportunity to ask questions and assume patient care.
[2018-04-17] MEDS: Melatonin 3mg tablet PO SCH (20:55)
[2018-04-17 22:00] VITALS: BP 149/104
[2018-04-18] MEDS: traMADol 50MG tablet PO PRN ×4 (00:06→21:19)
[2018-04-18 06:00] VITALS: BP 142/99
[2018-04-18 06:02] LABS: BASOPHILS % (AUTO) 0.1 % (0-1); EOSINOPHILS % (AUTO) 0 % (0-6); HEMOGLOBIN 14.3 g/dl (14.0-17.9); LYMPHOCYTES # (AUTO) 0.4 X10'3 (1.1-4.8); LYMPHOCYTES % (AUTO) 4.1 % (21-51); MEAN CORPUSCULAR HEMOGLOBIN 30.4 PG (27.0-31.0); MEAN CORPUSCULAR HGB CONC 34.1 g/dL (33.0-36.5); MEAN CORPUSCULAR VOLUME 89.1 FL (78-98); MEAN PLATELET VOLUME 8.6 FL (7.4-10.4); MONOCYTES # (AUTO) 0.6 X10'3 (0-0.9); MONOCYTES % (AUTO) 5.4 % (2-12); NEUTROPHILS # (AUTO) 9.2 X10'3 (1.8-7.7); NEUTROPHILS % (AUTO) 90.4 % (42-75); PLATELET COUNT 298 X10'3 (140-440); RED BLOOD COUNT 4.72 X10'6 (4.70-6.10); RED CELL DISTRIBUTION WIDTH 12.8 % (11.5-14.5); WHITE BLOOD COUNT 10.2 X10'3 (4.5-11.0)
--- NOTE | 2018-04-18 06:14 | NUR ---
VERY PAINFUL AT TIMES THROUGHOUT THE SHIFT, LIMITED WITH MOVEMENTS OF EXTREMITIES D/T PAIN AND HYPERSENSITIVITY TO REMOVAL OF COVERS OR CLOTHING AGAINST HIS SKIN. REPORT TO EARLY SHIFT RN
--- NOTE | 2018-04-18 06:14 | NUR ---
RECEIVED REPORT FROM UDAY LARKIN
[2018-04-18 06:25] LABS: ALBUMIN 3.2 G/DL (3.4-5.0); ANION GAP 7 (8-16); BLOOD UREA NITROGEN 20 MG/DL (7-18); BUN/CREATININE RATIO 24.4 (5.4-32.0); CALCIUM 9.7 MG/DL (8.5-10.1); CHLORIDE 100 MMOL/L (99-107); CREATININE 0.82 MG/DL (0.60-1.10); GLUCOSE 129 MG/DL (70-104); POTASSIUM 4.2 MMOL/L (3.5-5.1); SODIUM 138 MMOL/L (135-145); TOTAL CARBON DIOXIDE 31.1 MMOL/L (24-32); eGFR > 90 ML/MIN
--- NOTE | 2018-04-18 07:00 | NUR ---
Problems reprioritized. Patient report given, questions answered & plan of care reviewed with TELMA FRYE.
[2018-04-18] MEDS: K and/or MAG REPLACEMENT MC SCH (08:00)
[2018-04-18] MEDS: docusate sod 100mg capsule PO SCH ×2 (08:00→20:00)
[2018-04-18] MEDS: pantoprazole 40mg Tablet.DR PO SCH (08:39)
[2018-04-18] MEDS: pregabalin 75mg capsule PO SCH ×3 (08:40→21:22)
[2018-04-18] MEDS: lactobacillus rhamnosus 10,000 MMU CELLS/CAPSULE PO SCH ×2 (08:40→20:00)
[2018-04-18] MEDS: fluconazole 100mg tablet PO SCH (08:41)
[2018-04-18] MEDS: methylPREDNISolone sod succ 125mg/2ml vial IV SCH ×2 (08:43→21:19)
[2018-04-18 10:00] VITALS: BP 132/100
--- NOTE | 2018-04-18 14:57 | NUR ---
PT LET ME LOOK AT HIS PRESSURE ULCER BUT TOLD ME THAT HE IS TOO PAINFUL FOR ME TO HAVE HIM STAND OR ROLL ONTO HIS SIDE SO I CAN TAKE A PIC, PRESSURE IS COVERED W/A FOAM AND IS CDI, PT TELLS ME THAT HE IS TOO PAINFUL TO TURN IN BED, HOSPITALIST AWARE, CONTINUE TO MONITOR
[2018-04-18] MEDS: HYDROcodone/acetaminophen 10/325mg tab PO PRN (15:31)
--- NOTE | 2018-04-18 18:06 | NUR ---
GAVE REPORT TO UDAY LARKIN
[2018-04-18] MEDS: Melatonin 3mg tablet PO SCH (21:00)
--- NOTE | 2018-04-18 21:36 | NUR ---
talked to Carla at [facility] who spoke with Dr. Leroy (psych MD). stated he wanted seroquel to start tonight at 2345 so he will put orders in appropriatly. no order to hold melatonin yet, so we will wait to see if discontinues melatonin prior to giving this pm.
[2018-04-18] MEDS ORDERED: QUEtiapine 25mg tablet PO SCH (23:45)
--- NOTE | 2018-04-19 01:57 | NUR ---
SPOKE WITH DR. GRAVES AT THIS TIME. WAS CALLING TO CHECK ON EFFECTIVENESS OF SEROQUEL GIVEN TONIGHT AND IF ADDITIONAL DOSE HAD BEEN NEEDED. PATIENT SEEMS TO BE RESTING COMFORTABLY AT THIS TIME GIVEN THE INITIAL DOSE OF 50 MG ONLY. STATED WE COULD REPEAT IN 45 MINS IF PATIENT STILL AWAKE WITH AN ADDITIONAL DOSE OF 50MG OF SEROQUEL, BUT NO FURTHER DOSES TO BE GIVEN AFTER THAT WITHOUT HAVING AN EKG AND TALKING TO DR. BECERRIL OR DR. MILLS IN [facility]. ORIGINAL ORDER WAS WRITTEN THAT AN INITIAL DOSE OF 50 MG COULD BE GIVEN AND IF PATIENT NOT ASLEEP MAY REPEAT WITH A SECOND DOSE OF 50MG. IF PATIENT STILL AWAKE COULD GIVE A FINAL DOSE OF 100MG SEROQUEL, HOWEVER UPON FURTHER RESEARCH BY DR. GRAVES, SEROQUEL WOULD REDUCE THE EFFECTIVENESS OF THE ANTI PARASITIC MEDICATION AND COULD CAUSE CARDIAC COMPLICATIONS SO NO LONGER WANTS THE 3RD DOSE OF 100MG SEROQUEL GIVEN AT ALL. eMR checked AND SEROQUEL IS ONLY ENTERED AN INITIAL DOSE AND CAN FOLLOW UP WITH ANOTHER DOSE OF 50MG, ONLY. WILL PASS THIS ON IN REPORT TO NEXT SHIFT
[2018-04-19] MEDS: HYDROcodone/acetaminophen 10/325mg tab PO PRN ×3 (04:41→19:52)
--- NOTE | 2018-04-19 05:59 | NUR ---
NO VOID AMTS RECORDED FOR THIS SHIFT. PATIENT IS VOIDING PER URINAL AND MOTHER IS EMPTYING IT IN THE TOILET WITHOUT RECORDING AMTS. WILL POST ON PTS. BATHROOM DOOR AND HAVE HIS MOTHER WRITE AMTS FOR NURSING.
[2018-04-19 06:30] VITALS: BP 144/87
--- NOTE | 2018-04-19 06:30 | NUR ---
Patient in room ORTHO 4012. I have received report from Mickie kendrick and had the opportunity to ask questions and assume patient care.
[2018-04-19 06:50] LABS: BASOPHILS % (AUTO) 0.1 % (0-1); EOSINOPHILS % (AUTO) 0 % (0-6); HEMATOCRIT 42.1 % (42.0-52.0); HEMOGLOBIN 13.9 g/dl (14.0-17.9); LYMPHOCYTES # (AUTO) 0.4 X10'3 (1.1-4.8); LYMPHOCYTES % (AUTO) 4.5 % (21-51); MEAN CORPUSCULAR HEMOGLOBIN 29.8 PG (27.0-31.0); MEAN CORPUSCULAR VOLUME 90.2 FL (78-98); MEAN PLATELET VOLUME 8.4 FL (7.4-10.4); MONOCYTES # (AUTO) 0.3 X10'3 (0-0.9); MONOCYTES % (AUTO) 4.1 % (2-12); NEUTROPHILS # (AUTO) 7.8 X10'3 (1.8-7.7); NEUTROPHILS % (AUTO) 91.3 % (42-75); PLATELET COUNT 268 X10'3 (140-440); RED BLOOD COUNT 4.67 X10'6 (4.70-6.10); RED CELL DISTRIBUTION WIDTH 12.7 % (11.5-14.5); WHITE BLOOD COUNT 8.5 X10'3 (4.5-11.0)
[2018-04-19 06:58] LABS: ALBUMIN 3.1 G/DL (3.4-5.0); ANION GAP 6 (8-16); BLOOD UREA NITROGEN 21 MG/DL (7-18); BUN/CREATININE RATIO 28.8 (5.4-32.0); CALCIUM 9.5 MG/DL (8.5-10.1); CHLORIDE 99 MMOL/L (99-107); CREATININE 0.73 MG/DL (0.60-1.10); GLUCOSE 116 MG/DL (70-104); POTASSIUM 4.1 MMOL/L (3.5-5.1); SODIUM 137 MMOL/L (135-145); TOTAL CARBON DIOXIDE 31.7 MMOL/L (24-32); eGFR > 90 ML/MIN
--- NOTE | 2018-04-19 07:00 | NUR ---
Problems reprioritized. Patient report given, questions answered & plan of care reviewed with MONICA FRYE.
[2018-04-19] MEDS: K and/or MAG REPLACEMENT MC SCH (08:00)
[2018-04-19 08:31] VITALS: BP 144/87
[2018-04-19] MEDS: docusate sod 100mg capsule PO SCH ×3 (09:01→20:00)
[2018-04-19] MEDS: pregabalin 75mg capsule PO SCH ×3 (09:01→19:52)
[2018-04-19] MEDS: lactobacillus rhamnosus 10,000 MMU CELLS/CAPSULE PO SCH ×2 (09:01→19:52)
[2018-04-19] MEDS: methylPREDNISolone sod succ 125mg/2ml vial IV SCH (09:02)
[2018-04-19] MEDS: fluconazole 100mg tablet PO SCH (09:02)
[2018-04-19] MEDS: pantoprazole 40mg Tablet.DR PO SCH (09:06)
[2018-04-19 11:24] VITALS: BP 133/99
--- NOTE | 2018-04-19 12:01 | NUR ---
Paged Dr. Seymour with patients concerns of burning skin sensation. Paged SS for patient to discuss SSI issues.
--- NOTE | 2018-04-19 14:13 | NUR ---
encouraged patient to move, off load weight. Requested patient to turn so wound could be assessed futher, Patient states that it isn't hurting at all and if it does he will call us and let us know. Patient refused dressing change or assessment.
[2018-04-19] MEDS: magnesium hydroxide 30ml (MOM) UD suspension PO PRN (15:42)
--- NOTE | 2018-04-19 15:43 | NUR ---
MOM given for patient to have BM at patients request.
[2018-04-19] MEDS ORDERED: bisacodyl 10mg suppository rectal RC PRN (16:30)
--- NOTE | 2018-04-19 17:22 | NUR ---
Offered Dulcolax Supp, patient refused
--- NOTE | 2018-04-19 17:23 | NUR ---
Had a long talk with patient on how he is talking to staff with inappropriate language, he states that he didn't realize that he is offending anyone. Patient is educated on not refusing care from PT, and MD when they round to see him, educated on their own time management they have daily in seeing their patients. He acknowledges understanding.
[2018-04-19 18:00] VITALS: BP 105/45
--- NOTE | 2018-04-19 18:08 | NUR ---
RECEIVED REPORT FROM MONCIA FRYE AND ASSUMED PATIENT CARE
--- NOTE | 2018-04-19 18:24 | NUR ---
Problems reprioritized. Patient report given, questions answered & plan of care reviewed with Aaliyah FRYE.
[2018-04-19] MEDS: methylPREDNISolone sod succ/PF 40mg inj. IV SCH (19:52)
[2018-04-19 20:19] LABS: CLARITY,URINE CLEAR (Clear); COLOR,URINE YELLOW (Yellow); GLUCOSE, URINE NEGATIVE (Neg); KETONES,URINE NEGATIVE (Neg); LEUKOCYTE ESTERASE ,URINE NEGATIVE (Neg); NITRITES, URINE NEGATIVE (Neg); OCCULT BLOOD,URINE NEGATIVE (Neg); PH,URINE 5.5 (4.8-8.0); PROTEIN,URINE NEGATIVE (Neg); UROBILINOGEN,URINE 0.2 E.U/dL (0.2-1.0)
[2018-04-19 20:20] LABS: UA COLLECTION TYPE NON-SPECIFIED
[2018-04-19 20:26] LABS: URINE AMPHETAMINE SCREEN NEGATIVE (Neg); URINE BARBITUATE SCREEN NEGATIVE (Neg); URINE BENZODIAZEPINES SCREEN NEGATIVE (Neg); URINE CANNABINOID SCREEN POSITIVE (Neg); URINE COCAINE SCREEN NEGATIVE (Neg); URINE METHADONE SCREEN NEGATIVE (Neg); URINE OPIATE SCREEN POSITIVE (Neg); URINE PHENCYCLIDINE SCREEN NEGATIVE (Neg)
[2018-04-19] MEDS: Melatonin 3mg tablet PO SCH (21:03)
[2018-04-19] MEDS: quetiapine 100mg tablet PO SCH (21:04)
[2018-04-20 05:59] LABS: BASOPHILS % (AUTO) 0.1 % (0-1); EOSINOPHILS % (AUTO) 0 % (0-6); HEMATOCRIT 41.8 % (42.0-52.0); HEMOGLOBIN 13.9 g/dl (14.0-17.9); LYMPHOCYTES # (AUTO) 0.5 X10'3 (1.1-4.8); LYMPHOCYTES % (AUTO) 4.4 % (21-51); MEAN CORPUSCULAR HEMOGLOBIN 29.7 PG (27.0-31.0); MEAN CORPUSCULAR HGB CONC 33.2 g/dL (33.0-36.5); MEAN CORPUSCULAR VOLUME 89.4 FL (78-98); MEAN PLATELET VOLUME 8.2 FL (7.4-10.4); MONOCYTES # (AUTO) 0.8 X10'3 (0-0.9); MONOCYTES % (AUTO) 6.4 % (2-12); NEUTROPHILS # (AUTO) 10.8 X10'3 (1.8-7.7); NEUTROPHILS % (AUTO) 89.1 % (42-75); PLATELET COUNT 290 X10'3 (140-440); RED BLOOD COUNT 4.68 X10'6 (4.70-6.10); RED CELL DISTRIBUTION WIDTH 12.9 % (11.5-14.5); WHITE BLOOD COUNT 12.1 X10'3 (4.5-11.0)
[2018-04-20 06:09] LABS: ALBUMIN 3.1 G/DL (3.4-5.0); ANION GAP 8 (8-16); BLOOD UREA NITROGEN 27 MG/DL (7-18); CALCIUM 9.4 MG/DL (8.5-10.1); CHLORIDE 101 MMOL/L (99-107); GLUCOSE 131 MG/DL (70-104); POTASSIUM 3.9 MMOL/L (3.5-5.1); SODIUM 140 MMOL/L (135-145); TOTAL CARBON DIOXIDE 31.1 MMOL/L (24-32); eGFR 90 ML/MIN
--- NOTE | 2018-04-20 06:24 | NUR ---
REPORT GIVEN TO ARIANNA FRYE
[2018-04-20 07:12] VITALS: BP 145/100
[2018-04-20] MEDS: pantoprazole 40mg Tablet.DR PO SCH (07:34)
[2018-04-20] MEDS: pregabalin 75mg capsule PO SCH ×3 (07:34→20:59)
[2018-04-20] MEDS: lactobacillus rhamnosus 10,000 MMU CELLS/CAPSULE PO SCH ×2 (07:34→20:59)
[2018-04-20] MEDS: fluconazole 100mg tablet PO SCH (07:35)
[2018-04-20] MEDS: HYDROcodone/acetaminophen 10/325mg tab PO PRN ×3 (07:35→20:59)
[2018-04-20] MEDS: methylPREDNISolone sod succ/PF 40mg inj. IV SCH ×2 (07:35→20:58)
[2018-04-20] MEDS: docusate sod 100mg capsule PO SCH ×2 (07:35→20:00)
[2018-04-20] MEDS: K and/or MAG REPLACEMENT MC SCH (07:36)
--- NOTE | 2018-04-20 18:20 | NUR ---
RECEIVED REPORT FROM ARIANNA FRYE AND ASSUMED PATIENT CARE
[2018-04-20] MEDS: magnesium hydroxide 30ml (MOM) UD suspension PO PRN (19:13)
[2018-04-20] MEDS: amitriptyline 10mg tablet PO SCH (20:59)
[2018-04-20 22:00] VITALS: BP 137/99
[2018-04-20] MEDS: quetiapine 100mg tablet PO SCH (22:52)
[2018-04-20] MEDS: Melatonin 3mg tablet PO SCH (22:52)
[2018-04-20] MEDS: traMADol 50MG tablet PO PRN (22:53)
[2018-04-21] MEDS: HYDROcodone/acetaminophen 10/325mg tab PO PRN ×2 (02:55→21:05)
[2018-04-21 03:15] LABS: BASOPHILS % (AUTO) 0.3 % (0-1); EOSINOPHILS % (AUTO) 0.1 % (0-6); HEMATOCRIT 42.2 % (42.0-52.0); HEMOGLOBIN 13.8 g/dl (14.0-17.9); LYMPHOCYTES # (AUTO) 0.8 X10'3 (1.1-4.8); LYMPHOCYTES % (AUTO) 5.3 % (21-51); MEAN CORPUSCULAR HEMOGLOBIN 29.5 PG (27.0-31.0); MEAN CORPUSCULAR HGB CONC 32.7 g/dL (33.0-36.5); MEAN CORPUSCULAR VOLUME 90.2 FL (78-98); MEAN PLATELET VOLUME 8.2 FL (7.4-10.4); MONOCYTES # (AUTO) 0.5 X10'3 (0-0.9); MONOCYTES % (AUTO) 3.5 % (2-12); NEUTROPHILS # (AUTO) 13.6 X10'3 (1.8-7.7); NEUTROPHILS % (AUTO) 90.8 % (42-75); PLATELET COUNT 279 X10'3 (140-440); RED BLOOD COUNT 4.68 X10'6 (4.70-6.10); RED CELL DISTRIBUTION WIDTH 12.9 % (11.5-14.5)
[2018-04-21 03:19] LABS: ANION GAP 7 (8-16); BLOOD UREA NITROGEN 28 MG/DL (7-18); BUN/CREATININE RATIO 36.4 (5.4-32.0); CALCIUM 9.1 MG/DL (8.5-10.1); CHLORIDE 101 MMOL/L (99-107); CREATININE 0.77 MG/DL (0.60-1.10); GLUCOSE 125 MG/DL (70-104); POTASSIUM 4.4 MMOL/L (3.5-5.1); SODIUM 138 MMOL/L (135-145); TOTAL CARBON DIOXIDE 29.9 MMOL/L (24-32); eGFR > 90 ML/MIN
--- NOTE | 2018-04-21 06:00 | NUR ---
patient refused vitals
--- NOTE | 2018-04-21 06:35 | NUR ---
REPORT GIVEN TO LARRY FRYE
--- NOTE | 2018-04-21 06:44 | NUR ---
Patient in room ORTHO 4012. I have received report from Aaliyah Jeff and had the opportunity to ask questions and assume patient care.
[2018-04-21] MEDS: K and/or MAG REPLACEMENT MC SCH (07:06)
[2018-04-21] MEDS: methylPREDNISolone sod succ/PF 40mg inj. IV SCH (08:14)
[2018-04-21] MEDS: pregabalin 75mg capsule PO SCH ×3 (08:15→21:05)
[2018-04-21] MEDS: lactobacillus rhamnosus 10,000 MMU CELLS/CAPSULE PO SCH ×2 (08:15→21:05)
[2018-04-21] MEDS: pantoprazole 40mg Tablet.DR PO SCH (08:15)
[2018-04-21] MEDS: docusate sod 100mg capsule PO SCH ×2 (08:16→21:05)
[2018-04-21] MEDS: traMADol 50MG tablet PO PRN ×3 (08:19→22:06)
[2018-04-21 10:00] VITALS: BP 108/72
[2018-04-21 18:00] VITALS: BP 135/87
--- NOTE | 2018-04-21 18:09 | NUR ---
Problems reprioritized. Patient report given, questions answered & plan of care reviewed with Amy Jimenez RN.
--- NOTE | 2018-04-21 18:10 | NUR ---
Received report from Jeff FRYE, assumed care of patient.
[2018-04-21] MEDS: quetiapine 100mg tablet PO SCH (21:05)
[2018-04-21] MEDS: Melatonin 3mg tablet PO SCH (21:05)
[2018-04-21] MEDS: amitriptyline 10mg tablet PO SCH (21:05)
--- NOTE | 2018-04-21 22:00 | NUR ---
Patient refused to have vital signs taken at this time.
--- NOTE | 2018-04-22 06:42 | NUR ---
Report given to Jeff FRYE.
--- NOTE | 2018-04-22 07:05 | NUR ---
Patient in room ORTHO 4012. I have received report from Amy FRYE and had the opportunity to ask questions and assume patient care.
[2018-04-22 07:34] LABS: BASOPHILS % (AUTO) 0.1 % (0-1); EOSINOPHILS # (AUTO) 0.2 X10'3 (0-0.9); EOSINOPHILS % (AUTO) 1.9 % (0-6); HEMATOCRIT 39.1 % (42.0-52.0); HEMOGLOBIN 12.8 g/dl (14.0-17.9); LYMPHOCYTES # (AUTO) 2.8 X10'3 (1.1-4.8); LYMPHOCYTES % (AUTO) 24.2 % (21-51); MEAN CORPUSCULAR HEMOGLOBIN 29.5 PG (27.0-31.0); MEAN CORPUSCULAR HGB CONC 32.8 g/dL (33.0-36.5); MEAN CORPUSCULAR VOLUME 89.8 FL (78-98); MONOCYTES # (AUTO) 0.9 X10'3 (0-0.9); MONOCYTES % (AUTO) 7.3 % (2-12); NEUTROPHILS # (AUTO) 7.8 X10'3 (1.8-7.7); NEUTROPHILS % (AUTO) 66.5 % (42-75); PLATELET COUNT 238 X10'3 (140-440); RED BLOOD COUNT 4.35 X10'6 (4.70-6.10); WHITE BLOOD COUNT 11.8 X10'3 (4.5-11.0)
[2018-04-22 07:44] LABS: ALBUMIN 2.7 G/DL (3.4-5.0); ANION GAP 3 (8-16); BLOOD UREA NITROGEN 24 MG/DL (7-18); BUN/CREATININE RATIO 36.9 (5.4-32.0); CALCIUM 8.7 MG/DL (8.5-10.1); CHLORIDE 103 MMOL/L (99-107); CREATININE 0.65 MG/DL (0.60-1.10); GLUCOSE 94 MG/DL (70-104); SODIUM 140 MMOL/L (135-145); TOTAL CARBON DIOXIDE 34.1 MMOL/L (24-32); eGFR > 90 ML/MIN
[2018-04-22] MEDS: K and/or MAG REPLACEMENT MC SCH (07:53)
[2018-04-22] MEDS: lactobacillus rhamnosus 10,000 MMU CELLS/CAPSULE PO SCH ×2 (08:01→20:45)
[2018-04-22] MEDS: pregabalin 75mg capsule PO SCH ×3 (08:03→20:45)
[2018-04-22] MEDS: methylPREDNISolone sod succ/PF 40mg inj. IV SCH (08:05)
[2018-04-22] MEDS: pantoprazole 40mg Tablet.DR PO SCH (08:05)
[2018-04-22] MEDS: traMADol 50MG tablet PO PRN ×3 (08:05→20:50)
[2018-04-22] MEDS: docusate sod 100mg capsule PO SCH ×2 (08:06→20:00)
--- NOTE | 2018-04-22 08:19 | NUR ---
Unable to obtain full assessment due to patients refusal
[2018-04-22] MEDS: HYDROcodone/acetaminophen 10/325mg tab PO PRN ×2 (09:34→23:04)
[2018-04-22] MEDS: polyethylene glycol 3350 17gm powd pack PO PRN (10:43)
--- NOTE | 2018-04-22 12:54 | NUR ---
Reassessment: Pt slowly improving per MD progress notes. Documented PO intake 75-100% while receiving double protein TID, pt meeting nutrient needs with additional protein to aid in wound healing. Pt seen at bedside states he would like to continue receiving double protein TID however he is feeling constipated d/t LBM 04/17 with a small BM 04/21 per pt. Pt receiving routine Colace and received MoM 04/20 and Miralax 04/22, pt agreeable to power pudding with lunch this afternoon, d/w dietary and bedside RN. RD contact information provided. Will continue to follow. Rec: 1. continue regular diet 2. routine bowel care; monitor need for additional 3. double protein TIDWM 4. wt per rx Addendum: 04/22/18 at [address] Amended: Links added.
--- NOTE | 2018-04-22 14:59 | NUR ---
Had a meeting with patient and his mother with Ashley Dumont from case management and Breanna from discharge planning so that all the patients questions could be answered regarding his upcoming discharge. Patient and mother were informed that once antibiotic treatment is finished today 04/22/18 that patient will be discharged tomorrow 04/23/18 around 1200. Mother and patient expressed concern about a place for the patient to go to stay which he did not have a current resident before he came here to the hospital. Patient and mother were informed [facility] to stay.
[2018-04-22] MEDS ORDERED: lactulose 20gm/30ml cup PO ONE (15:45)
--- NOTE | 2018-04-22 18:22 | NUR ---
PATIENT REPORT RECEIVED FROM LARRY FRYE.
--- NOTE | 2018-04-22 18:36 | NUR ---
Problems reprioritized. Patient report given, questions answered & plan of care reviewed with Flor Walker RN.
[2018-04-22] MEDS: lactulose 20gm/30ml cup PO SCH (20:00)
[2018-04-22] MEDS: amitriptyline 10mg tablet PO SCH (20:45)
[2018-04-22] MEDS: Melatonin 3mg tablet PO SCH (20:46)
[2018-04-22 22:00] VITALS: BP 125/85
[2018-04-22] MEDS: quetiapine 100mg tablet PO SCH (23:04)
[2018-04-23] MEDS: quetiapine 100mg tablet PO SCH (01:09)
[2018-04-23] MEDS: lactulose 20gm/30ml cup PO SCH ×2 (02:00→09:44)
[2018-04-23] MEDS: traMADol 50MG tablet PO PRN (02:47)
[2018-04-23] MEDS: HYDROcodone/acetaminophen 10/325mg tab PO PRN ×2 (05:50→09:45)
--- NOTE | 2018-04-23 06:12 | NUR ---
PATIENT REPORT GIVEN TO MISAEL FRYE.
[2018-04-23 06:57] VITALS: BP 103/74
[2018-04-23 07:12] LABS: BASOPHILS # (AUTO) 0.2 X10'3 (0-0.2); BASOPHILS % (AUTO) 1.2 % (0-1); EOSINOPHILS # (AUTO) 0.4 X10'3 (0-0.9); EOSINOPHILS % (AUTO) 3.1 % (0-6); HEMATOCRIT 37.8 % (42.0-52.0); HEMOGLOBIN 12.7 g/dl (14.0-17.9); LYMPHOCYTES # (AUTO) 3.4 X10'3 (1.1-4.8); LYMPHOCYTES % (AUTO) 25.2 % (21-51); MEAN CORPUSCULAR HEMOGLOBIN 30.3 PG (27.0-31.0); MEAN CORPUSCULAR HGB CONC 33.5 g/dL (33.0-36.5); MEAN CORPUSCULAR VOLUME 90.3 FL (78-98); MEAN PLATELET VOLUME 8.2 FL (7.4-10.4); MONOCYTES # (AUTO) 0.7 X10'3 (0-0.9); MONOCYTES % (AUTO) 5.5 % (2-12); NEUTROPHILS # (AUTO) 8.8 X10'3 (1.8-7.7); PLATELET COUNT 237 X10'3 (140-440); RED BLOOD COUNT 4.19 X10'6 (4.70-6.10); RED CELL DISTRIBUTION WIDTH 13.4 % (11.5-14.5); WHITE BLOOD COUNT 13.5 X10'3 (4.5-11.0)
[2018-04-23 07:29] LABS: ALBUMIN 2.7 G/DL (3.4-5.0); ANION GAP 5 (8-16); BLOOD UREA NITROGEN 19 MG/DL (7-18); BUN/CREATININE RATIO 25.7 (5.4-32.0); CALCIUM 8.9 MG/DL (8.5-10.1); CHLORIDE 101 MMOL/L (99-107); CREATININE 0.74 MG/DL (0.60-1.10); GLUCOSE 103 MG/DL (70-104); POTASSIUM 3.9 MMOL/L (3.5-5.1); SODIUM 137 MMOL/L (135-145); TOTAL CARBON DIOXIDE 30.9 MMOL/L (24-32); eGFR > 90 ML/MIN
[2018-04-23] MEDS: K and/or MAG REPLACEMENT MC SCH (08:00)
[2018-04-23] MEDS: lactobacillus rhamnosus 10,000 MMU CELLS/CAPSULE PO SCH (09:45)
[2018-04-23] MEDS: docusate sod 100mg capsule PO SCH (09:46)
[2018-04-23] MEDS: methylPREDNISolone sod succ/PF 40mg inj. IV SCH (09:46)
[2018-04-23] MEDS: pantoprazole 40mg Tablet.DR PO SCH (09:46)
[2018-04-23] MEDS: pregabalin 75mg capsule PO SCH (09:50)
[2018-04-23 09:52] VITALS: BP 114/69
[2018-04-23] MEDS ORDERED: LYR75C PO (10:04)
[2018-04-23] MEDS ORDERED: HYDR-3972 PO (10:04)
[2018-04-23] MEDS ORDERED: PRED10TA23 PO (10:04)
[2018-04-23] MEDS ORDERED: QUET100T33 PO (10:04)
--- NOTE | 2018-04-23 14:15 | NUR ---
Page to Dr. Huertas MESSAGE: [id number] Dimitri Iverson We need the Lyrica changed to Gabapentin due to insurance coverage. Loan [phone]
== END 2018-04-23 16:13 | disposition home or self-care (01) | DRG 720 ==
LOC: ORTHO 4S 18:42
PROVIDERS: ADMIT Family Medicine; ATTEND Family Medicine
PROC: 009U3ZX Drainage of Spinal Canal, Percutaneous Approach, Diagnostic (ICD-10-PCS; 2018-04-08)
PROC: 009U3ZX Drainage of Spinal Canal, Percutaneous Approach, Diagnostic (ICD-10-PCS; principal; 2018-04-12)
DX: A41.9 Sepsis, unspecified organism (principal); G92 Toxic encephalopathy; D72.1 Eosinophilia; E87.1 Hypo-osmolality and hyponatremia; F20.2 Catatonic schizophrenia; A00-B99 Certain infectious and parasitic diseases; F31.60 Bipolar disorder, current episode mixed, unspecified; H53.2 Diplopia; L40.9 Psoriasis, unspecified; F29 Unspecified psychosis not due to a substance or known physiological condition; K59.00 Constipation, unspecified; M79.7 Fibromyalgia; G43.909 Migraine, unspecified, not intractable, without status migrainosus; G47.9 Sleep disorder, unspecified; F19.10 Other psychoactive substance abuse, uncomplicated; Z79.899 Other long term (current) drug therapy; Z88.8 Allergy status to other drugs, medicaments and biological substances
CPT/HCPCS: 36415; 62270; 70553; 71045; 72147; 72149; 72156; 77003; 80048; 80053; 80202; 80305; 81003; 82550; 82945; 83735; 84100; 84110; 84157; 84439; 84443; 85025; 86480; 86592; 86703; 86720; 87015; 87040; 87070; 87102; 87210; 89051; 92616; 93306; 97110; 97116; 97161; 97530; A9579; G0378; J0696; J2001; J2540; J2920; J2930; J3370; J7030